=== PATIENT | female | born 1995 | race American Indian/Alaskan Native ===

== ENCOUNTER 2021-08-27 19:18 | Emergency (ER) | payer MEDICAID, OTHER ==
[2021-08-27] MEDS ORDERED: Ondansetron 4 MG/2 ML SDV IVPUSH ONE (19:48)
[2021-08-27] MEDS ORDERED: Sodium Chloride 0.9% 1,000 ML IV ONE (19:48)
[2021-08-27] MEDS ORDERED: diphenhydrAMINE 50 MG/ML SDV IVPUSH ONE (19:48)
[2021-08-27 20:19] LABS: BLOOD UREA NITROGEN,BUN 10 mg/dL (7.0-18.0); CARBON DIOXIDE,CO2 22.5 mmol/L (21.0-32.0); CHLORIDE,CL 103 mmol/L (98-107); GLUCOSE RANDOM 128 mg/dL (74-106); LIPASE 51 U/L (73-393); POTASSIUM,K 3.5 mmol/L (3.5-5.1); SODIUM,NA 138 mmol/L (136-145)
[2021-08-27] MEDS ORDERED: Haloperidol Lactate 5 MG/ML SDV IM ONE (20:29)
[2021-08-27 22:15] VITALS: BP 96/52; PULSE 73
== END 2021-08-27 22:19 | disposition home or self-care (01) ==
LOC: MW.ED 19:18
DX: R11.10 Vomiting, unspecified (principal); T40.725A Adverse effect of synthetic cannabinoids, initial encounter
CPT/HCPCS: 36415; 80053; 81001; 83690; 84703; 85025; 96361; 96372; 96374; 96375; 99284; J1200; J1630; J2405; J7030